=== PATIENT | male | born 1970 | race Two or more races ===

== ENCOUNTER 2020-04-20 23:17 | Emergency (ER) | payer OTHER ==
[~2020-04-20] VITALS: Ht 180.3 cm; Wt 111.1 kg
[2020-04-21] MEDS ORDERED: LEVSIN/SL0.125 MG SL (05:41)
[2020-04-21] MEDS ORDERED: PROTONIX40 MG PO (05:42)
== END 2020-04-21 05:43 ==
LOC: ER 23:17
DX: R10.13 Epigastric pain (principal); K62.5 Hemorrhage of anus and rectum; Z20.822 Contact with and (suspected) exposure to COVID-19

== ENCOUNTER → 2020-10-05 10:30 | Outpatient (CLI) | payer OTHER ==
[~2020-10-05 10:30] MED LIST: LEVSIN/SL0.125 MG SL; PROTONIX40 MG PO
== END | disposition home or self-care (01) ==
LOC: NUCLEAR 10:30
PROVIDERS: ATTEND Orthopaedic Surgery Sports Medicine
DX: I87.2 Venous insufficiency (chronic) (peripheral) (principal)

== ENCOUNTER 2020-10-05 12:17 | Outpatient (CLI) | payer OTHER | END 2020-10-05 12:26 | disposition home or self-care (01) | LOC: RAD 12:17 | PROVIDERS: ATTEND Orthopaedic Surgery Sports Medicine | DX: M25.571 Pain in right ankle and joints of right foot (principal) ==

== ENCOUNTER → 2023-01-01 | Emergency (ER) | payer OTHER ==
[~2023-01-01] VITALS: Ht 180.3 cm; Wt 113.4 kg
[~2023-01-01] MED LIST changes: +CIPRO100 MG; +TAMS0.4C PO
[2023-01-01 09:39] LABS: MEAN CELL VOLUME 91.6 fL (80.0-100.00); MEAN CORPUSCULAR HGB CONC 33.2 g/dl (32.0-36.0); PLATELET COUNT 230 K/uL (150-450); RED BLOOD COUNT 5.68 M/uL (4.00-6.00); RED CELL DISTRIBUTION WIDTH 14.3 % (11.5-14.5)
[2023-01-01 09:44] LABS: HEMOGLOBIN 17.2 g/dL (13-16.00); MEAN CORPUSCULAR HEMOGLOBIN 30.2 pg (27.00-32.0)
[2023-01-01 10:04] LABS: PARTIAL THROMBOPLASTIN TIME 24.7 SECONDS (22.0-34.0); PROTHROMBIN TIME 10.5 SECONDS (9.0-11.5)
[2023-01-01 10:10] LABS: ALBUMIN 4.1 gm/dL (3.4-5.0); BILIRUBIN TOTAL 0.37 mg/dL (0.3-1.2); CREATININE SERUM 1.08 mg/dL (0.70-1.30); GFR 72.37; GLOBULINA 4.1 G/DL (2.4-3.5); POTASSIUM 3.6 mEq/L (3.5-5.1); TOTAL PROTEIN 8.2 gm/dL (6.4-8.2)
[2023-01-01 10:16] LABS: PH,URINE 5.5 (5.0-8.0); URINE APPEARANCE Clear; URINE BILIRRUBIN Negative (NEGATIVE); URINE BLOOD Moderate; URINE COLOR Yellow; URINE LEUKOCYTE Negative; URINE NITRATE Negative; URINE UROBILINOGEN 0.2 E.U./dl
[2023-01-01 10:18] LABS: URINE BACTERIA 31.4 uL (0.0-1933); URINE EPITHELIAL CELLS 11.8 uL (0.0-38.8); URINE RBC 8.4 uL (0.0-20.8); URINE WBC 8.9 uL (0.0-23.2)
[2023-01-01 10:38] LABS: URINE GLUCOSE 100 MG/DL (NEGATIVE); URINE PROTEIN 300 (NEGATIVE)
[2023-01-01 10:59] LABS: ABG PO2 64.8 mmHg (80-100); BASE EXCESS -2.1 mmol/l; BICARBONATE 21.8 mmol/l (23-25); SaO2 92.5 %; Tco2 22.9 mmol/l
[2023-01-01 11:01] LABS: allen test SATISFACTORY; o2 21 %; puncture site RADIAL RIGHT
== END | disposition home or self-care (01) ==
LOC: ER 08:45
PROVIDERS: Emergency Medicine
DX: I10 Essential (primary) hypertension (principal); I21.3 ST elevation (STEMI) myocardial infarction of unspecified site; F17.200 Nicotine dependence, unspecified, uncomplicated; Z20.822 Contact with and (suspected) exposure to COVID-19